=== PATIENT | female | born 1985 | race Caucasian/White ===

== ENCOUNTER 2017-11-22 09:43 | Emergency (ER) | payer OTHER ==
[~2017-11-22] VITALS: Ht 157.5 cm; Wt 65.8 kg
[~2017-11-22 09:43] MED LIST: ALBU90OI INH; AMOX500 PO; AZIT250 PO; BRINTELLIX10 MG PO; CITA20 PO; CLIN300 PO; CODGUAEL PO; Esgic Tablet1 EACH PO; HYDACE5 PO; HYDGUAL120 PO; Inderal40 MG; MEDICAL MARIJUANA; MULVITMINE; Monodox100 MG PO; OLAN5 PO; PROC10 PO; PROCODE120 PO; Phentermine HCl30 MG; RXCLIN PO; SULTRIDS PO; TYLENOL COLD; Tylophen500 MG PO; Ventolin/Prove6.7 GM INH; Zofran4 MG PO
[2017-11-22] MEDS ORDERED: CEPH500 PO (10:54)
[2017-11-22] MEDS ORDERED: Pyridium200 MG PO (10:54)
[2017-11-22 10:57] LABS: Source, Urine Clean Catch
[2017-11-22 11:05] LABS: Blood, Urine 2+ (Neg); Glucose Qualitative, Urine Neg (Neg); Ketones, Urine Neg (Neg); Leukocyte Esterase, Urine 2+ (Neg); Nitrite, Urine Neg (Neg); Protein, Urine 2+ (Neg); Specific Gravity, Urine 1.025 (1.003-1.022); Urobilinogen, Urine 1+ (Normal)
[2017-11-22 11:12] LABS: Appearance, Urine Cloudy (Clear); Color, Urine Amber (P-Yellow)
[2017-11-22 11:13] LABS: Bilirubin, Urine 1+ (Neg)
[2017-11-22 11:16] LABS: Mucus Light (0-Heavy)
[2017-11-22 11:18] LABS: Squamous Epithelial Cells Many /hpf (Few)
[2017-11-22 11:23] LABS: Bacteria Mod /hpf
== END 2017-11-22 11:05 | disposition home or self-care (01) ==
LOC: ER 09:43
PROVIDERS: Physician Assistant
DX: N39.0 Urinary tract infection, site not specified (principal); Z88.8 Allergy status to other drugs, medicaments and biological substances; Z88.2 Allergy status to sulfonamides; Z87.891 Personal history of nicotine dependence
CPT/HCPCS: 81001; 87086; 99283

== ENCOUNTER 2017-12-12 16:59 | Emergency (ER) | payer OTHER ==
[~2017-12-12] VITALS: Ht 157.5 cm; Wt 72.6 kg
[~2017-12-12 16:59] MED LIST changes: +CEPH500 PO; +Pyridium200 MG PO
[2017-12-12] MEDS ORDERED: FLUO10 (17:08)
[2017-12-12] MEDS ORDERED: Triamcinolone A15 GM TOP (17:47)
== END 2017-12-12 18:02 | disposition home or self-care (01) ==
LOC: ER 16:59
DX: L25.9 Unspecified contact dermatitis, unspecified cause (principal); L55.0 Sunburn of first degree; F32.9 Major depressive disorder, single episode, unspecified; F17.200 Nicotine dependence, unspecified, uncomplicated; Z88.8 Allergy status to other drugs, medicaments and biological substances; Z88.5 Allergy status to narcotic agent; Z79.899 Other long term (current) drug therapy
CPT/HCPCS: 99282

== ENCOUNTER 2018-02-22 00:48 | Emergency (ER) | payer OTHER ==
[~2018-02-22] VITALS: Ht 157.5 cm; Wt 72.6 kg
[~2018-02-22 00:48] MED LIST changes: +FLUO10; +Triamcinolone A15 GM TOP
[2018-02-22] MEDS ORDERED: Claritin5 MG/5 ML PO (04:03)
== END 2018-02-22 04:13 | disposition home or self-care (01) ==
LOC: ER 00:48
DX: J40 Bronchitis, not specified as acute or chronic (principal); Z88.8 Allergy status to other drugs, medicaments and biological substances; Z88.5 Allergy status to narcotic agent; G43.909 Migraine, unspecified, not intractable, without status migrainosus; F32.9 Major depressive disorder, single episode, unspecified; F17.210 Nicotine dependence, cigarettes, uncomplicated
CPT/HCPCS: 71046

== ENCOUNTER 2018-05-27 19:58 | Emergency (ER) | payer OTHER ==
[~2018-05-27] VITALS: Ht 157.5 cm; Wt 63.5 kg
[~2018-05-27 19:58] MED LIST changes: +Claritin5 MG/5 ML PO
[2018-05-27] MEDS ORDERED: Bactrim Ds Tab1 EACH PO (20:49)
[2018-05-27] MEDS ORDERED: CEPH500 PO (20:49)
== END 2018-05-27 20:57 | disposition home or self-care (01) ==
LOC: ER 19:58
DX: L02.416 Cutaneous abscess of left lower limb (principal); L03.116 Cellulitis of left lower limb; F17.200 Nicotine dependence, unspecified, uncomplicated
CPT/HCPCS: 10060; 99283-25

== ENCOUNTER 2022-07-04 11:21 | Emergency (ER) | payer OTHER ==
[~2022-07-04] VITALS: Ht 160 cm; Wt 87.5 kg
[~2022-07-04 11:21] MED LIST changes: +Bactrim Ds Tab1 EACH PO; +Diflucan100 MG PO
[2022-07-04] MEDS ORDERED: SULTRIDS PO (13:01)
== END 2022-07-04 13:10 | disposition home or self-care (01) ==
LOC: ER 11:21
DX: L03.221 Cellulitis of neck (principal); F17.210 Nicotine dependence, cigarettes, uncomplicated; Z88.8 Allergy status to other drugs, medicaments and biological substances; Z88.5 Allergy status to narcotic agent
CPT/HCPCS: 99283

== ENCOUNTER 2022-09-14 07:31 | Emergency (ER) | payer OTHER ==
[~2022-09-14] VITALS: Ht 160 cm; Wt 86.2 kg
[2022-09-14] MEDS ORDERED: Cyclobenzaprine5 MG PO (08:26)
== END 2022-09-14 08:56 | disposition home or self-care (01) ==
LOC: ER 07:31
DX: M54.9 Dorsalgia, unspecified (principal); F17.210 Nicotine dependence, cigarettes, uncomplicated; Z53.29 Procedure and treatment not carried out because of patient's decision for other reasons; Z88.5 Allergy status to narcotic agent; Z88.8 Allergy status to other drugs, medicaments and biological substances; Z79.899 Other long term (current) drug therapy
CPT/HCPCS: 99283